=== PATIENT | female | born 1930 | race African-American/Black ===

== ENCOUNTER 2017-06-16 12:53 | Inpatient (IN) | payer MEDICARE, MEDICAID ==
[~2017-06-16] VITALS: Ht 157.5 cm; Wt 72.1 kg
[~2017-06-16 12:53] MED LIST: CARV12.544 OR; LISI10TA6 OR; PRAVASTATIN PO
[2017-06-16 14:12] LABS: Basophils # (auto) 0 uL; Basophils % (auto) 0.4 % (0.0-2.0); Eosinophils # (auto) 0.1 uL; Eosinophils % (auto) 1.3 % (0.0-7.0); Hematocrit 37.5 % (36.0-46.0); Hemoglobin 12.3 g/dL (12.2-16.2); Lymphocytes # (auto) 1.5 uL; Lymphocytes % (auto) 23.5 % (10.0-50.0); Mean Corpuscular Hemoglobin 28.5 pg (28.0-32.0); Mean Corpuscular Hgb Conc. 32.8 g/dL (32.0-36.0); Monocytes # (auto) 0.3 uL; Monocytes % (auto) 5.2 % (0.0-12.0); Neutrophils # (auto) 4.5 uL; Neutrophils % (auto) 69.6 % (37.0-80.0); Nucleated Red Blood Cells % 0.1 %; Platelet Count (auto) 198 10^3/uL (140-450); Red Blood Cells 4.31 10^6/uL (4.0-5.20); Red Cell Distribution Width 14.9 % (11.8-14.3); White Blood Cell 6.5 10^3/uL (4.4-10.8)
[2017-06-16 14:34] LABS: Alanine Aminotransferase 14 U/L (13-56); Albumin 3.6 g/dL (3.4-5.0); Alkaline Phosphatase 63 U/L (45-117); Anion Gap 7 (5-15); Aspartate Aminotransferase 14 U/L (15-37); Bilirubin, Total 0.3 mg/dL (0.2-1.0); Blood Urea Nitrogen 16 mg/dL (7-18); Calcium 8.8 mg/dL (8.5-10.1); Carbon Dioxide 27 mmol/L (21-32); Chloride 107 mmol/L (98-107); GFR African American 73 mL/min; GFR Non-African American 60 mL/min; Glucose 113 mg/dL (74-106); Potassium 3.9 mmol/L (3.5-5.1); Sodium 141 mmol/L (136-145); Total Protein 7.9 g/dL (6.4-8.2)
[2017-06-16] MEDS ORDERED: ASPirin 81 mg TAB PO ONE (16:00)
[2017-06-16 16:27] LABS: INR 0.95 (0.9-1.15); Partial Thromboplastin Time 25.7 sec (22.64-33.71); Prothrombin Time 10.3 sec (9.37-12.3)
[2017-06-16] MEDS ORDERED: LORazepam 0.5 MG TAB PO PRN (18:30)
[2017-06-16] MEDS ORDERED: HYDROcodone-ACET 5/325MG TAB PO PRN (18:30)
[2017-06-16] MEDS ORDERED: NITROGLYCERIN 0.4 MG SL TAB SL PRN (18:30)
[2017-06-16] MEDS ORDERED: TEMAZEPAM 15 MG CAP PO PRN (18:30)
[2017-06-16] MEDS ORDERED: LACTULOSE 20Gm/30ML SOLN PO PRN (18:30)
[2017-06-16] MEDS ORDERED: PROMETHAZINE HCL 25 MG/ML 1ML IV PRN (18:30)
[2017-06-16] MEDS ORDERED: MORPHINE SULFATE 4 MG/ML SYR/VIAL IV PRN ×2 (18:30)
[2017-06-16] MEDS ORDERED: ACETAMINOPHEN 500 MG TAB PO PRN (18:30)
[2017-06-16] MEDS: SODIUM CHLORIDE 0.9% 1,000 ML IV SCH ×2 (19:13→20:13)
[2017-06-16 20:05] VITALS: BP 140/90
[2017-06-16 22:00] VITALS: BP 140/90
[2017-06-16] MEDS: PRAVASTATIN SODIUM 20 MG TAB PO SCH (22:18)
[2017-06-16] MEDS: CARVEDILOL 12.5 MG TAB PO SCH (22:19)
[2017-06-17 05:00] VITALS: BP 138/85
[2017-06-17 08:47] VITALS: BP 148/87
[2017-06-17] MEDS ORDERED: NITROGLYCERIN 0.2MG/HR TOPICAL PATCH TD SCH (10:00)
[2017-06-17] MEDS: ENOXAPARIN SOD 40 MG/0.4 ML SYRINGE SC SCH (10:14)
[2017-06-17] MEDS: CARVEDILOL 12.5 MG TAB PO SCH ×2 (10:15→20:31)
[2017-06-17] MEDS: ASPirin 81 mg TAB PO SCH (10:15)
[2017-06-17] MEDS: LISINOPRIL 10 MG TAB PO SCH (10:17)
[2017-06-17 10:18] LABS: Free T4 (Free Thyroxine) 1.2 ng/dL (0.89-1.76)
[2017-06-17 10:19] LABS: Free T3 2.59 pg/mL (2.3-4.2)
[2017-06-17 12:17] VITALS: BP 141/98
[2017-06-17] MEDS ORDERED: IOHEXOL 350 MG/ML 100ML IJ ONE ×2 (16:24→17:35)
[2017-06-17 17:24] VITALS: BP 152/86
[2017-06-17] MEDS: PRAVASTATIN SODIUM 20 MG TAB PO SCH (20:31)
[2017-06-17] MEDS: SODIUM CHLORIDE 0.9% 1,000 ML IV SCH (21:09)
[2017-06-17 22:00] VITALS: BP 170/90
[2017-06-18 05:00] VITALS: BP 157/78
[2017-06-18 07:09] LABS: BUN/Creatinine Ratio 10.5; Calcium 9.1 mg/dL (8.5-10.1)
[2017-06-18 08:00] VITALS: BP 156/73
[2017-06-18 08:50] VITALS: BP 153/73
[2017-06-18] MEDS: ENOXAPARIN SOD 40 MG/0.4 ML SYRINGE SC SCH (10:00)
[2017-06-18] MEDS ORDERED: CARVEDILOL 12.5 MG TAB PO SCH ×2 (10:00→10:15)
[2017-06-18] MEDS: ASPirin 81 mg TAB PO SCH (10:00)
[2017-06-18] MEDS: LISINOPRIL 10 MG TAB PO SCH (10:01)
[2017-06-18 12:28] VITALS: BP 153/73
[2017-06-18] MEDS ORDERED: LISINOPRIL 10 MG TAB PO ONE (13:45)
[2017-06-18 16:32] VITALS: BP 186/98
[2017-06-18] MEDS ORDERED: hydrALAZINE HCL 20 MG/ML VL IV PRN (17:15)
[2017-06-18] MEDS ORDERED: amLODIPine BESYLATE 5 MG TAB PO ONE (17:15)
[2017-06-18] MEDS: CARVEDILOL 12.5 MG TAB PO SCH (17:58)
[2017-06-18 21:46] VITALS: BP 140/68
[2017-06-18] MEDS ORDERED: ATORVASTATIN 20 MG TAB PO SCH (22:00)
[2017-06-19] VITALS (7 sets, daily range): BP systolic 136–156; BP diastolic 72–93
[2017-06-19] MEDS: CARVEDILOL 12.5 MG TAB PO SCH (08:10)
[2017-06-19] MEDS ORDERED: ADENOSINE 61 MG in GIVE UN-DILUTED 0 ML IV STA (08:33)
[2017-06-19] MEDS ORDERED: LISINOPRIL 20 MG TAB PO SCH (10:00)
[2017-06-19] MEDS ORDERED: amLODIPine BESYLATE 5 MG TAB PO SCH (10:00)
[2017-06-19] MEDS: ASPirin 81 mg TAB PO SCH (11:13)
[2017-06-19] MEDS: ENOXAPARIN SOD 40 MG/0.4 ML SYRINGE SC SCH (11:13)
[2017-06-19] MEDS ORDERED: CAR125T PO (12:27)
[2017-06-19] MEDS ORDERED: ASPI81CH43 PO (12:27)
[2017-06-19] MEDS ORDERED: LISI-646 PO (12:27)
[2017-06-19] MEDS ORDERED: AML5T PO (12:27)
== END 2017-06-19 15:00 | disposition home or self-care (01) | DRG 313 ==
LOC: ER 12:53 → EDBD 12:53 → TELE 12:54 → TELE-EAST 20:05
PROVIDERS: ADMIT Internal Medicine; ATTEND Internal Medicine
DX: R07.89 Other chest pain (principal); I25.10 Atherosclerotic heart disease of native coronary artery without angina pectoris; E11.51 Type 2 diabetes mellitus with diabetic peripheral angiopathy without gangrene; I50.42 Chronic combined systolic (congestive) and diastolic (congestive) heart failure; I11.0 Hypertensive heart disease with heart failure; J98.11 Atelectasis; K57.90 Diverticulosis of intestine, part unspecified, without perforation or abscess without bleeding; I25.119 Atherosclerotic heart disease of native coronary artery with unspecified angina pectoris; I44.0 Atrioventricular block, first degree; E78.5 Hyperlipidemia, unspecified; M19.90 Unspecified osteoarthritis, unspecified site; Z79.82 Long term (current) use of aspirin; Z82.49 Family history of ischemic heart disease and other diseases of the circulatory system; Z86.79 Personal history of other diseases of the circulatory system; Z83.3 Family history of diabetes mellitus; Z87.891 Personal history of nicotine dependence; Z90.710 Acquired absence of both cervix and uterus; Z95.5 Presence of coronary angioplasty implant and graft
CPT/HCPCS: 36415; 71045; 71275; 78452; 80048; 80053; 82550; 83735; 83880; 84439; 84443; 84481; 84484; 85025; 85379; 85610; 85652; 85730; 86141; 93005; 93017; 94761; 96360; J0153

== ENCOUNTER → 2017-07-05 | Outpatient (CLI) | payer MEDICARE, MEDICAID ==
[~2017-07-05] MED LIST changes: +AML5T PO; +ASPI81CH43 PO; +CAR125T PO; -CARV12.544 OR; +LISI-646 PO; -LISI10TA6 OR
[2017-07-05 08:37] LABS: Basophils # (auto) 0.1 uL; Eosinophils # (auto) 0.1 uL; Eosinophils % (auto) 2.5 % (0.0-7.0); Hematocrit 35.6 % (36.0-46.0); Hemoglobin 11.5 g/dL (12.2-16.2); Lymphocytes # (auto) 2.4 uL; Lymphocytes % (auto) 42.4 % (10.0-50.0); Mean Corpuscular Hgb Conc. 32.4 g/dL (32.0-36.0); Mean Corpuscular Volume 86.4 fL (80.0-100.0); Monocytes # (auto) 0.4 uL; Monocytes % (auto) 6.6 % (0.0-12.0); Neutrophils # (auto) 2.6 uL; Neutrophils % (auto) 47.5 % (37.0-80.0); Platelet Count (auto) 201 10^3/uL (140-450); Red Blood Cells 4.12 10^6/uL (4.0-5.20); White Blood Cell 5.6 10^3/uL (4.4-10.8)
[2017-07-05 10:20] LABS: Albumin 3.7 g/dL (3.4-5.0); BUN/Creatinine Ratio 25.5; Bilirubin, Total 0.3 mg/dL (0.2-1.0); Calcium 8.6 mg/dL (8.5-10.1); Potassium 4.3 mmol/L (3.5-5.1); Total Protein 7.5 g/dL (6.4-8.2)
== END | disposition home or self-care (01) ==
LOC: LAB 08:22
PROVIDERS: ATTEND Physician Assistant
DX: I11.0 Hypertensive heart disease with heart failure (principal); I50.9 Heart failure, unspecified; I25.10 Atherosclerotic heart disease of native coronary artery without angina pectoris; K21.9 Gastro-esophageal reflux disease without esophagitis; E78.4 Other hyperlipidemia; J44.9 Chronic obstructive pulmonary disease, unspecified
CPT/HCPCS: 36415; 80053; 80061; 83540; 85025

== ENCOUNTER 2018-07-04 13:46 | Emergency (ER) | payer MEDICARE, MEDICAID ==
[~2018-07-04] VITALS: Ht 154.9 cm; Wt 68.5 kg
[2018-07-04 14:01] VITALS: BP 151/80
[2018-07-04] MEDS ORDERED: KETOROLAC TROMETH 30 MG/ML 1ML VIAL IM ONE (15:45)
== END 2018-07-04 16:25 | disposition home or self-care (01) ==
LOC: ER 13:47
DX: M17.12 Unilateral primary osteoarthritis, left knee (principal); M46.96 Unspecified inflammatory spondylopathy, lumbar region; I25.10 Atherosclerotic heart disease of native coronary artery without angina pectoris; E78.5 Hyperlipidemia, unspecified; I10 Essential (primary) hypertension; Z90.710 Acquired absence of both cervix and uterus; Z88.5 Allergy status to narcotic agent; Z88.1 Allergy status to other antibiotic agents; Z79.82 Long term (current) use of aspirin; Z79.899 Other long term (current) drug therapy; Z98.61 Coronary angioplasty status; Z87.891 Personal history of nicotine dependence
CPT/HCPCS: 72100; 73562; 96372; 99283; J1885

== ENCOUNTER → 2018-08-05 | Outpatient (CLI) | payer MEDICARE, MEDICAID ==
[~2018-08-05] VITALS: Ht 157.5 cm; Wt 61.2 kg
[~2018-08-05] MED LIST changes: +ADENOSINE 51 MG in GIVE UN-DILUTED 0 ML IV STA
[2018-08-05 09:15] VITALS: BP 152/86
== END | disposition home or self-care (01) ==
LOC: XY 08:10
PROVIDERS: ATTEND Internal Medicine
DX: R07.9 Chest pain, unspecified (principal)
CPT/HCPCS: 78452; 93017; A9500; J0153

== ENCOUNTER → 2018-08-07 | Outpatient (CLI) | payer MEDICARE, MEDICAID ==
[~2018-08-07] MED LIST changes: -ADENOSINE 51 MG in GIVE UN-DILUTED 0 ML IV STA
== END | disposition home or self-care (01) ==
LOC: XY 08:36
PROVIDERS: ATTEND Internal Medicine
DX: I70.202 Unspecified atherosclerosis of native arteries of extremities, left leg (principal); I70.291 Other atherosclerosis of native arteries of extremities, right leg
CPT/HCPCS: 93925

== ENCOUNTER → 2018-08-14 | Outpatient (CLI) | payer MEDICARE, MEDICAID | END | disposition home or self-care (01) | LOC: XYW 10:33 | PROVIDERS: ATTEND Internal Medicine | DX: R07.9 Chest pain, unspecified (principal) | CPT/HCPCS: 93306 ==

== ENCOUNTER → 2019-01-13 | Outpatient (CLI) | payer MEDICARE, MEDICAID ==
[2019-01-13 09:11] LABS: Basophils # (auto) 0 uL; Basophils % (auto) 0.6 % (0.0-2.0); Eosinophils # (auto) 0.1 uL; Eosinophils % (auto) 2.2 % (0.0-7.0); Hematocrit 38.1 % (36.0-46.0); Hemoglobin 12.8 g/dL (12.2-16.2); Lymphocytes % (auto) 30.8 % (10.0-50.0); Mean Corpuscular Hemoglobin 29.2 pg (28.0-32.0); Mean Corpuscular Hgb Conc. 33.6 g/dL (32.0-36.0); Mean Corpuscular Volume 86.8 fL (80.0-100.0); Monocytes # (auto) 0.4 uL; Monocytes % (auto) 5.7 % (0.0-12.0); Neutrophils # (auto) 3.9 uL; Neutrophils % (auto) 60.7 % (37.0-80.0); Platelet Count (auto) 206 10^3/uL (140-450); Red Blood Cells 4.39 10^6/uL (4.0-5.20); Red Cell Distribution Width 14.7 % (11.8-14.3); White Blood Cell 6.4 10^3/uL (4.4-10.8)
[2019-01-13 09:41] LABS: Potassium 4.1 mmol/L (3.5-5.1)
[2019-01-13 09:47] LABS: BUN/Creatinine Ratio 15.9; Bilirubin, Total 0.5 mg/dL (0.2-1.0)
== END | disposition home or self-care (01) ==
LOC: LAB 08:41
PROVIDERS: ATTEND Physician Assistant
DX: I11.0 Hypertensive heart disease with heart failure (principal); I50.42 Chronic combined systolic (congestive) and diastolic (congestive) heart failure; M81.0 Age-related osteoporosis without current pathological fracture; K21.9 Gastro-esophageal reflux disease without esophagitis; R03.1 Nonspecific low blood-pressure reading; Z95.5 Presence of coronary angioplasty implant and graft
CPT/HCPCS: 36415; 80053; 80061; 85025

== ENCOUNTER → 2019-05-02 | Emergency (ER) | payer MEDICARE, MEDICAID ==
[~2019-05-02] MED LIST changes: +MIDAZOLAM HCL 5 MG/ML-1ML VIAL ONE; +SIMETHICONE 40 MG/0.6 ML ORAL DROP ONE; +SODIUM CHLORIDE LOCK 0 ML ONE; +diphenhdrAMINE HCL 50 MG/1 ML VL ONE; +fentaNYL CITRATE 100 MCG/2 ML VL ONE
== END | disposition left against medical advice (07) ==
LOC: ER 00:51
DX: N93.9 Abnormal uterine and vaginal bleeding, unspecified (principal); Z53.21 Procedure and treatment not carried out due to patient leaving prior to being seen by health care provider

== ENCOUNTER → 2020-03-04 | Outpatient (CLI) | payer MEDICARE, MEDICAID ==
[~2020-03-04] MED LIST changes: -MIDAZOLAM HCL 5 MG/ML-1ML VIAL ONE; -SIMETHICONE 40 MG/0.6 ML ORAL DROP ONE; -SODIUM CHLORIDE LOCK 0 ML ONE; -diphenhdrAMINE HCL 50 MG/1 ML VL ONE; -fentaNYL CITRATE 100 MCG/2 ML VL ONE
[2020-03-04 10:20] LABS: Basophils # (auto) 0 10 ^3/uL (0-0.2); Basophils % (auto) 0.4 % (0.0-2.0); Eosinophils # (auto) 0.1 10 ^3/uL (0-0.8); Eosinophils % (auto) 2.3 % (0.0-7.0); Hematocrit 39.1 % (36.0-46.0); Hemoglobin 12.8 g/dL (12.2-16.2); Lymphocytes # (auto) 1.9 10 ^3/uL (0.4-5.4); Lymphocytes % (auto) 33.9 % (10.0-50.0); Mean Corpuscular Hemoglobin 28.8 pg (28.0-32.0); Mean Corpuscular Hgb Conc. 32.6 g/dL (32.0-36.0); Mean Corpuscular Volume 88.3 fL (80.0-100.0); Monocytes # (auto) 0.4 10 ^3/uL (0-1.3); Monocytes % (auto) 7.2 % (0.0-12.0); Neutrophils # (auto) 3.1 10 ^3/uL (1.6-8.6); Neutrophils % (auto) 56.2 % (37.0-80.0); Nucleated Red Blood Cells % 0.1 %; Platelet Count (auto) 192 10^3/uL (140-450); Red Blood Cells 4.43 10^6/uL (4.0-5.20); Red Cell Distribution Width 15.3 % (11.8-14.3); White Blood Cell 5.5 10^3/uL (4.4-10.8)
[2020-03-04 11:03] LABS: Albumin 3.9 g/dL (3.4-5.0); Calcium 9.3 mg/dL (8.5-10.1); Potassium 4.2 mmol/L (3.5-5.1)
[2020-03-04 11:08] LABS: BUN/Creatinine Ratio 20.2; Bilirubin, Total 0.5 mg/dL (0.2-1.0); Total Protein 7.6 g/dL (6.4-8.2)
== END | disposition home or self-care (01) ==
LOC: LAB 09:49
PROVIDERS: ATTEND Physician Assistant
DX: I11.0 Hypertensive heart disease with heart failure (principal); I50.42 Chronic combined systolic (congestive) and diastolic (congestive) heart failure; I73.9 Peripheral vascular disease, unspecified; M19.90 Unspecified osteoarthritis, unspecified site
CPT/HCPCS: 36415; 80053; 80061; 85025

== ENCOUNTER → 2020-07-13 | Outpatient (CLI) | payer MEDICARE, MEDICAID ==
[~2020-07-13] VITALS: Ht 160 cm; Wt 81.6 kg
[~2020-07-13] MED LIST changes: +ADENOSINE 69 MG in GIVE UN-DILUTED 0 ML IV STA
== END | disposition home or self-care (01) ==
LOC: XYW 07:51
PROVIDERS: ATTEND Internal Medicine
DX: R07.9 Chest pain, unspecified (principal)
CPT/HCPCS: 78452; 93017; A9500; J0153

== ENCOUNTER 2020-09-30 07:09 | Observation (INO) | payer MEDICARE, MEDICAID ==
[~2020-09-30] VITALS: Ht 160 cm; Wt 65.8 kg
[~2020-09-30 07:09] MED LIST changes: -ADENOSINE 69 MG in GIVE UN-DILUTED 0 ML IV STA; +FERR-20 PO; +HYDR-4798 PO; -LISI-646 PO; +LISI20TA28 PO; +MEMA1TAB3 PO; +OMEP20TA PO; +PSYL1.7W2 PO
[2020-09-30] MEDS ORDERED: IODIXANOL 320MG/ML 100ML BTL IV ONE ×2 (09:00→09:46)
[2020-09-30] MEDS ORDERED: LIDOCAINE 2%HCL (LOCAL ANESTH.) INJ 20ML MDV ONE (09:00)
[2020-09-30] MEDS ORDERED: fentaNYL CITRATE 100 MCG/2 ML VL ONE (09:07)
[2020-09-30] MEDS ORDERED: ANGIOMAX 250 MG VIAL IV ONE (09:07)
[2020-09-30] MEDS ORDERED: SODIUM CHL 0.9% 50 ML ONE (09:08)
[2020-09-30] MEDS ORDERED: MIDAZOLAM HCL 1MG/1ML-2 ML VIAL ONE (09:08)
[2020-09-30] MEDS ORDERED: PRAV20TA3 PO (11:53)
[2020-09-30] MEDS ORDERED: ASPI1TAB19 PO (11:56)
[2020-09-30] MEDS ORDERED: AMLO-489 PO (11:56)
[2020-09-30] MEDS ORDERED: CARV25TA55 PO (11:56)
[2020-09-30] MEDS ORDERED: LISI20TA28 PO (11:58)
[2020-09-30] MEDS ORDERED: FERR-20 PO (11:58)
[2020-09-30] MEDS ORDERED: NITROGLYCERIN 0.4 MG SL TAB SL PRN (12:15)
[2020-09-30] MEDS ORDERED: ACETAMINOPHEN 325 MG TAB PO PRN (12:15)
[2020-09-30] MEDS ORDERED: MORPHINE SULF INJ 2 MG/ML SYRINGE 1ML IV PRN (12:15)
[2020-09-30] MEDS: SODIUM CHLOR 0.9% PF (SALINE LOCK) 10ML VIAL/SYR IV SCH ×2 (14:00→21:30)
[2020-09-30 16:58] VITALS: BP 136/81
[2020-09-30] MEDS: CARVEDILOL 12.5 MG TAB PO SCH (21:29)
[2020-09-30] MEDS ORDERED: ATORVASTATIN 20 MG TAB PO SCH (22:00)
[2020-09-30 23:22] VITALS: BP 110/55
[2020-10-01] MEDS: SODIUM CHLOR 0.9% PF (SALINE LOCK) 10ML VIAL/SYR IV SCH ×2 (05:30→14:07)
[2020-10-01 05:33] VITALS: BP 154/82
[2020-10-01 05:59] LABS: Potassium 3.8 mmol/L (3.5-5.1)
[2020-10-01 06:07] LABS: BUN/Creatinine Ratio 20.3; Calcium 9.3 mg/dL (8.5-10.1)
[2020-10-01 08:30] VITALS: BP 150/93
[2020-10-01] MEDS ORDERED: ASPirin 81 mg TAB PO SCH (10:00)
[2020-10-01] MEDS ORDERED: LISINOPRIL 20 MG TAB PO SCH (10:00)
[2020-10-01] MEDS: CARVEDILOL 12.5 MG TAB PO SCH (10:48)
[2020-10-01 12:44] VITALS: BP 103/57
[2020-10-01 13:50] VITALS: BP 150/93
[2020-10-01 16:52] VITALS: BP 132/73
== END 2020-10-01 18:20 | disposition home or self-care (01) ==
LOC: CATH 07:09 → INTOOBSV 11:25 → TELE 11:25 → TELE-EAST 15:12
PROVIDERS: ADMIT Internal Medicine; ATTEND Internal Medicine
DX: I73.9 Peripheral vascular disease, unspecified (principal); Z20.822 Contact with and (suspected) exposure to COVID-19; I25.10 Atherosclerotic heart disease of native coronary artery without angina pectoris; N17.9 Acute kidney failure, unspecified; I10 Essential (primary) hypertension; E78.5 Hyperlipidemia, unspecified; F03.90 Unspecified dementia, unspecified severity, without behavioral disturbance, psychotic disturbance, mood disturbance, and anxiety; I74.5 Embolism and thrombosis of iliac artery; Z53.9 Procedure and treatment not carried out, unspecified reason; Z79.899 Other long term (current) drug therapy; Z79.82 Long term (current) use of aspirin
CPT/HCPCS: 36415; 37220; 80048; C1769; C1887; C1894; G0378; J0583; J1644; J2250; J3010; Q9967; U0003; 96374; 99152; 99153

== ENCOUNTER → 2022-08-14 | Outpatient (CLI) | payer MEDICARE, MEDICAID ==
[~2022-08-14] MED LIST changes: -AML5T PO; +AMLO-489 PO; +ASPI1TAB19 PO; -ASPI81CH43 PO; -CAR125T PO; +CARV25TA55 PO; +PRAV20TA3 PO; -PRAVASTATIN PO
[2022-08-14 15:33] LABS: Basophils # (auto) 0.1 10 ^3/uL (0-0.2); Basophils % (auto) 0.8 % (0.0-2.0); Eosinophils # (auto) 0.1 10 ^3/uL (0-0.8); Eosinophils % (auto) 1.1 % (0.0-7.0); Hematocrit 36.6 % (36.0-46.0); Hemoglobin 11.9 g/dL (12.2-16.2); Lymphocytes # (auto) 2.4 10 ^3/uL (0.4-5.4); Lymphocytes % (auto) 32.1 % (10.0-50.0); Mean Corpuscular Hemoglobin 27.7 pg (28.0-32.0); Mean Corpuscular Hgb Conc. 32.6 g/dL (32.0-36.0); Mean Corpuscular Volume 85.1 fL (80.0-100.0); Monocytes # (auto) 0.5 10 ^3/uL (0-1.3); Monocytes % (auto) 6.7 % (0.0-12.0); Neutrophils # (auto) 4.4 10 ^3/uL (1.6-8.6); Neutrophils % (auto) 59.3 % (37.0-80.0); Nucleated Red Blood Cells % 0.1 %; Red Cell Distribution Width 16.3 % (11.8-14.3); White Blood Cell 7.4 10^3/uL (4.4-10.8)
[2022-08-14 15:57] LABS: Calcium 9.9 mg/dL (8.5-10.1); Potassium 3.7 mmol/L (3.5-5.1)
[2022-08-14 16:04] LABS: BUN/Creatinine Ratio 14.9 (10.0-20.0); Bilirubin, Total 0.4 mg/dL (0.2-1.0); Total Protein 7.8 g/dL (6.4-8.2)
== END | disposition home or self-care (01) ==
LOC: LAB 15:03
DX: E11.51 Type 2 diabetes mellitus with diabetic peripheral angiopathy without gangrene (principal); E78.5 Hyperlipidemia, unspecified; I10 Essential (primary) hypertension
CPT/HCPCS: 36415; 80053; 80061; 83036; 84439; 84443; 85025